=== PATIENT | female | born 1975 | race Caucasian/White ===

== ENCOUNTER 2016-06-11 16:04 | Emergency (ER) | payer OTHER ==
[2016-06-11 16:14] VITALS: BP 98/80; PULSE 109; TEMP 101; BMI 25.4
[2016-06-11] MEDS ORDERED: ACETAMINOPHEN 500 MG TABLET (FP) PO ONE (17:05)
[2016-06-11] MEDS ORDERED: ACETAMINOPHEN 500 MG TABLET (FP) ONE (17:07)
--- NOTE | 2016-06-11 17:30 | PDOC ---
History of Present Illness - General Chief Complaint: Sore Throat Stated Complaint: FEVER Time Seen by Provider: 06/11/16 17:04 History Source: Patient Exam Limitations: No Limitations - History of Present Illness Initial Comments: 06/11/16 17:28 sore throat and fever for 2 days Past History - Past Medical History Allergies/Adverse Reactions: Allergies Allergy/AdvReac Type Severity Reaction Status Date / Time No Known Allergies Allergy Verified 06/11/16 16:12 Home Medications: Ambulatory Orders Penicillin V Potassium [Pen Vee K -] 500 mg PO BID #20 tablet 06/11/16 Asthma: No Cancer: No Cardiac Disorders: No Diabetes: No HTN: No Seizures: No Thyroid Disease: No - Surgical History Appendectomy: Yes Cholecystectomy: Yes - Immunization History Immunization Up to Date: Yes - Psycho/Social/Smoking Cessation Hx Suicidal Ideation: No Smoking History: Never smoked Information on smoking cessation initiated: No Hx Alcohol Use: Yes Drug/Substance Use Hx: No Hx Substance Use Treatment: No Review of Systems - Review of Systems Able to Perform ROS?: Yes Comments:: 06/11/16 17:29 Constitutional: Yes: Symptoms Reported, See HPI, Fever HEENTM: Yes: Throat Pain *Physical Exam - Vital Signs Last Vital Signs Temp Pulse Resp BP Pulse Ox 101 F H 109 H 20 98/80 100 06/11/16 16:12 06/11/16 16:12 06/11/16 16:12 06/11/16 16:12 06/11/16 16:12 - Physical Exam General Appearance: Yes: Nourished, Appropriately Dressed HEENT: positive: EOMI, HOWARD, TMs Normal, Pharyngeal Erythema, Tonsillar Erythema Neck: positive: Lymphadenopathy (R) Respiratory/Chest: positive: Lungs Clear, Normal Breath Sounds. negative: Chest Tender Cardiovascular: positive: Regular Rhythm, Regular Rate Gastrointestinal/Abdominal: positive: Normal Bowel Sounds, Soft Musculoskeletal: positive: Normal Inspection Extremity: positive: Normal Capillary Refill, Normal Inspection, Normal Range of Motion Integumentary: positive: Normal Color, Dry, Warm Neurologic: positive: pvc loader II-XII NML intact, Fully Oriented, Alert, Normal Mood/ Affect, Motor Strength 5/5 ED Treatment Course - Medications Given in the ED: ED Medications Discontinued Medications Generic Name Dose Route Start Last Admin Trade Name Freq PRN Reason Stop Dose Admin Acetaminophen 1,000 mg 06/11/16 17:05 06/11/16 17:10 Tylenol - PO 06/11/16 17:06 1,000 mg ONCE ONE Administration Medical Decision Making - Medical Decision Making 06/11/16 17:30 cc: fever, sore throat for 2 days non toxic well appearing female no acute distress will check for strep tylenol for fever pt's son in ER with rash *DC/Admit/Observation/Transfer Diagnosis at time of Disposition: Strep pharyngitis - Discharge Dispostion Disposition: HOME Condition at time of disposition: Good - Prescriptions Prescriptions: Penicillin V Potassium [Pen Vee K -] 500 mg PO BID #20 tablet - Patient Instructions Additional Instructions: gargle with warm salt water 4-5 times a day ice pops, jello, pleanty of fluids soft foods take the prescribed medication for 10 days also get tylenol or motrin to take for fever and pain follow with your primary care if not improving in 3-5 days or return to ER if worse
== END 2016-06-11 17:58 | disposition home or self-care (01) ==
LOC: JERFT 16:04
DX: J02.0 Streptococcal pharyngitis (principal)
CPT/HCPCS: 87070; 87430; 99281-25